=== PATIENT | female | born 1940 | race Caucasian/White ===

== ENCOUNTER 2022-10-12 16:59 | Emergency (ER) | payer OTHER ==
--- OUTSIDE RECORDS SUMMARY | 2022-10-12 17:04 | XMS REPORT | Continuity of Care Document ---
:1940 Author Organization [facility] t Address [address] [place] [address] Care Team Providers Name Role Phone JOSE DEE Primary Care Physician Unavailable LIZZIE ARGUELLO Attending Clinician Unavailable Lizzie Arguello MD Attending Clinician Pob, [facility] Main Attending Clinician Unavailable Renzo Garza MD Attending Clinician Moisés Samuels Attending Clinician Unavailable JOSE PRETTY Attending Clinician Unavailable Jose Pretty MD Attending Clinician Only, Adc Test Attending Clinician Unavailable Doctor Unassigned, [place] Attending Clinician Unavailable Moisés Samuels Admitting Clinician Unavailable JOSE PRETTY Admitting Clinician Unavailable Jose Pretty MD Admitting Clinician Physician, No Primary or Family Admitting Clinician Unavaila ble Payers Payer Name Policy Type Policy Number Effective Date Expiration Date S michael MEDICARE PART A \\T\\ [id number] 2008 B 00:00:00 [facility] [id number] 2014 00:00:00 Problems This patient has no known problems. Allergies, Adverse Reactions, Alerts Allergy Allergy Status Severity Reaction(s) Onset Inactive Treating Comm ents Source Name Type Date Date Clinician Charmaine Dubon Active Rash 2020-11 Pt has Univer s ycin ty to 12-24 allergy ity of adverse 00:00: to all [place] reaction 00 mycin Medical s to drugs Branch drug ERYTHROM DRUG Active Low Rash 2020-11 Univers YCIN 12-24 ity of 00:00: [place] 00 [facility] Branch erythrom DA Active SV 2017- [facility] ycin 2-11 Clear base 00:00: Red 00 [facility] avocado DA Active SV 2017- [facility] 2-11 Clear 00:00: Red 00 [facility] avocado FA Active SV 2017- [facility] 2-11 Clear 00:00: Red 00 [facility] erythrom DA Active SV swelling,eben 2017-11 HC A ycin h ALL DRUGS -11 Clear base ENDING IN 00:00: Red MYCIN 00 [facility] neomycin DA Active SV RASH ALL 2017-11 [facility] MYCINS 2-11 Clear 00:00: Red 00 [facility] avocado FA Active SV BODY 2017- [facility] SWELLING 2-11 Clear 00:00: Red 00 [facility] neomycin DA Active SV 2017- [facility] 2-11 Clear 00:00: Red 00 [facility] erythrom DA Active SV 2017-0 [facility] ycin 4-04 Clear base 00:00: Red 00 [facility] neomycin DA Active SV 2017-0 [facility] 4-04 Clear 00:00: Red 00 [facility] avocado DA Active SV 2017-0 [facility] 4-04 Clear 00:00: Red 00 [facility] NO KNOWN Drug Active Univers ALLERGIE Class ity of S [facility] Social History Social Habit Start Date Stop Date Quantity Comments Source Exposure to Not sure [facility]-CoV-2 [facility] (event) Branch Tobacco use and 2021-10-28 2021-10-28 Smokeless tobacco Un iversity of exposure 00:00:00 00:00:00 non-user [facility] Sex Ass[birth year] At [birth year] [facility] 00:00:00 00:00:00 Smoking Status Start Date Stop Date Source Tobacco smoking consumption [facility] unknown Never smoked tobacco [facility] [place] Medications Ordered Filled Start Stop Current Ordering Indication Dosage Frequency Signature Comments Components Source Medication Medication Date Date Medication? Clinician (SIG) Name Name iopamidol 2021- No [id number] 130mL 130 mL, Univers (ISOVUE 07-03 Intravenou ity o f 370-500 mL) 20:00: 19:08 s, ONCE, 1 [place] injection 00 :00 dose, On Medica l 130 mL 07/03/22 Branch at 1500, Routine balanced Yes PRN, Univers salt soln 11-19 Starting ity of no.2 irrig. 15:02: [place] ([place] at [facility] ophthalmic [facility], [place] solution Until Discontinu ed, Routine, Intra-op balanced 2021- No PRN, Univers salt soln 11-19 Starting ity o f no.2 irrig. 15:02: 18:04 on Wed [place] (BSS) 00 :49 11/19/21 at [place] [id number], [place] solution Until Wed11/19/21 at 1204, Routine, Intra-op water for Yes PRN, Univers irrigation 11-19 Starting ity o f irrigation 14:02: on Wed [place] solution 11/19/21 at Medic al 0802, Branch Until Discontinu ed, Routine, Intra-op water for 2021- No PRN, Univers irrigation 11-19 Starting ity of irrigation 14:02: 18:04 on Wed [place] solution 00 :49 11/19/21 at Medic al 0802, Branch Until Wed11/19/21 at 1204, Routine, Intra-op sodium Yes PRN, Univers chloride 11-19 Starting ity of (NS) 13:59: on Wed [place] injection 11/19/21 at [facility] digna 0759, Branch Until Discontinu ed, Routine, Intra-op neomycin-po Yes PRN, Univer s lymyxin-dex 11-19 Starting ity of amethasone 13:59: on Wed [place] (MAXITROL) 11/19/21 at Med ical 3.5 0759, [place] mg/g-10,000 Until unit/g-0.1 Discontinu % ed, ophthalmic Routine, ointment Intra-op sodium 0 2021- No PRN, Univers chloride 11-19 Starting ity of (NS) 13:59: 18:04 on Wed [place] injection 00 :49 11/19/21 at [facility] digna 0759, Branch Until Wed11/19/21 at 1204, Routine, Intra-op neomycin-po 2021- No PRN, Unive rs lymyxin-dex 11-19 Starting ity of amethasone 13:59: 18:04 [place] ([place]ROL[place] 00 :49 11/19/21 at [facility] ical 3.5 0759, Branch mg/g-10,000 Until Wed unit/g-0.1 11/19/21 at % 1204, ophthalmic Routine, ointment Intra-op Hyaluronida Yes PRN, Univer s se, Human 11-19 Starting ity of Recomb. 13:58: on Wed [place] (HYLENEX) 00 11/19/21 at [facility] injection 0758, Branch Until Discontinu ed, Routine, Intra-op Hyaluronida 2021- No PRN, Unive rs se, Human 11-19 Starting ity o f Recomb. 13:58: 18:04 on Wed [place] (HYLENEX) 00 :49 11/19/21 at [facility] injection 0758, Branch Until Wed11/19/21 at 1204, Routine, Intra-op eye block Yes PRN, Univers syringe 11-19 Starting ity o f mL 13:57: on Wed 00 11/19/21 at [facility] 0757, Branch Until Discontinu ed, Intra-op EPINEPHrine Yes PRN, Univer s 1:1,000 (11-19 Starting ity o f mg/mL) 13:57: on Wed (ADRENALIN) 00 11/19/21 at Al dical injection 0757, Branch Until Discontinu ed, Routine, Intra-op DUOVISC Yes PRN, Univers (DUOVISC 11-19 Starting ity of VISCO 13:57: on Wed [place] ELASTIC) 3 00 11/19/21 at [facility] ical %-4 %(0.5 0757, Branch mL) 1 % Until (0.55 mL) Discontinu intraocular ed, injection Routine, Intra-op eye block 2021- No PRN, Univers syringe 11 11-19 Starting ity of mL 13:57: 18:04 on Wed [place] 00 :49 11/19/21 at Medical 0757, Branch Until Wed11/19/21 at 1204, Intra-op EPINEPHrine 2021- No PRN, Unive rs 1:1,000 (1 11-19 Starting ity of mg/mL) 13:57: 18:04 on Wed [place] (ADRENALIN) 00 :49 11/19/21 at Al dical injection 0757, Branch Until Wed11/19/21 at 1204, Routine, Intra-op DUOVISC 2021- No PRN, Univers (DUOVISC 11-19 Starting ity of VISCO 13:57: 18:04 on Wed [place] ELASTIC) 3 00 :49 11/19/21 at [facility] ical %-4 %(0.5 0757, Branch mL) 1 % Until Wed (0.55 mL) 11/19/21 at intraocular 1204, injection Routine, Intra-op dexamethaso Yes PRN, Univer s ne 11-19 Starting ity of (DECADRON 13:56: on Wed [place] PHOSPHATE) 00 11/19/21 at Med ical injection 0756, Branch Until Discontinu ed, Routine, Intra-op ceFAZolin Yes PRN, Univers (ANCEF) 11-19 Starting ity of injection 13:56: on Wed [place] 00 11/19/21 at Medical 0756, Branch Until Discontinu ed, NIC, Intra-op carbachoL Yes PRN, Univers (MIOSTAT) 11-19 Starting ity of 0.01 % 13:56: on Wed [place] intraocular 00 11/19/21 at Al dical injection 0756, Branch Until Discontinu ed, Routine, Intra-op dexamethaso 2021- No PRN, Unive rs ne 11-19 Starting ity of (DECADRON 13:56: 18:04 on Wed [place] PHOSPHATE) 00 :49 11/19/21 at Med ical injection 0756, Branch Until Wed11/19/21 at 1204, Routine, Intra-op ceFAZolin 2021- No PRN, Univers (ANCEF) 11-19 Starting ity of injection 13:56: 18:04 on Wed [place] 00 :49 11/19/21 at Medical 0756, Branch Until Wed11/19/21 at 1204, NIC, Intra-op carbachoL 2021- No PRN, Univers (MIOSTAT) 11-19 Starting ity o f 0.01 % 13:56: 18:04 on Wed [place] intraocular 00 :49 11/19/21 at Al dical injection 0756, Branch Until Wed11/19/21 at 1204, Routine, Intra-op balanced Yes PRN, Univers salt irrig 11-19 Starting ity o f soln comb1 13:55: on Wed [place] (BSS PLUS) 00 11/19/21 at [facility] ica ophthalmic 0755, Branch solution Until 500 mL bag Discontinu ed, Routine, Intra-op balanced 2021- No PRN, Univers salt irrig 11-19 Starting ity of soln comb1 13:55: 18:04 on Wed [place] (BSS PLUS) 00 :49 11/19/21 at [facility] ica ophthalmic 0755, Branch solution Until Wed 500 mL bag 11/19/21 at 1204, Routine, Intra-op cyclopent 2021- No .5mL 0.5 mL, Univ ers 1%-tropic 11-19 Left Eye, ity of 1%-phenyl 13:30: 13:44 ONCE, 1 [place] 2.5%-ketor 00 :00 dose, On Medic al 0.5% Wed Branch (MYDRIATIC 11/19/21 at #5) 0730, ophthalmic Routine, solution DSU Pre-op syringe 0.5 mL lactated 2021- No 1000mL at 42 Unive rs ringers IV 11-19 mL/hr, ity of infusion 13:30: 13:43 1,000 mL, [place] 1,000 mL 00 :00 IV Medical Infusion, Branch ONCE, 1 dose, On 11/19/21 at 0730, Routine, DSU Pre-op cyclopent 2021- No .5mL 0.5 mL, Univ ers 1%-tropic 11-19 Left Eye, ity of 1%-phenyl 13:30: 13:44 ONCE, 1 [place] 2.5%-ketor 00 :00 dose, On Medic al 0.5% Wed Branch (MYDRIATIC 11/19/21 at #5) 0730, ophthalmic Routine, solution DSU Pre-op syringe 0.5 mL lactated 2021- No 1000mL at 42 Unive rs ringers IV 11-1919 mL/hr, ity of infusion 13:30: 13:43 1,000 mL, [place] 1,000 mL 00 :00 IV Medical Infusion, Branch ONCE, 1 dose, On Wed11/19/21 at 0730, Routine, DSU Pre-op clonazePAM 2-0 Yes 1mg Take 1 mg Un jennifer 1 mg tablet 1-19 by mouth 3 it y of 10:04: (three) [place] [id number] times Medical daily. Branch cloNIDine 2021-0 Yes .2mg Take 0.2 Univ ers 0.2 mg 1-19 mg by ity of tablet 10:04: mouth 3 [place] [address] (three) Medical times Branch daily. clonazePAM 2-0 Yes 1mg Take 1 mg Un jennifer 1 mg tablet 1-19 by mouth 3 it y of 10:04: (three) [place] 47 times Medical daily. Branch cloNIDine 2021-0 Yes .2mg Take 0.2 Univ ers 0.2 mg 1-19 mg by ity of tablet 10:04: mouth 3 [place] [address] (three) Medical times Branch daily. clonazePAM 2-0 Yes 1mg Take 1 mg Un jennifer 1 mg tablet 1-19 by mouth 3 it y of 10:04: (three) [place] 47 times Medical daily. Branch cloNIDine 2-0 Yes .2mg Take 0.2 Univ ers 0.2 mg 1-19 mg by ity of tablet 10:04: mouth 3 [place] [address] (three) Medical times Branch daily. clonazePAM 2022-0 Yes 1mg Take 1 mg Un jennifer 1 mg tablet 1-19 by mouth 3 it y of 10:04: (three) [place] 47 times Medical daily. Branch cloNIDine 2-0 Yes .2mg Take 0.2 Univ ers 0.2 mg 1-19 mg by ity of tablet 10:04: mouth 3 [place] 47 (three) Medical times Branch daily. balanced 2020-11 Yes PRN, Univers salt soln Starting ity of no.2 irrig. 15:47: on Wed [place] (BSS[place] 00 10/29/21 Medical ophthalmic at 0947, Branc h solution Until Discontinu ed, Routine, Intra-op balanced 2020-11- No PRN, Univers salt soln 10-29 Starting ity o f no.2 irrig. 15:47: 19:16 on Wed [place] (BSS) 00 :21 10/29/21 Medical ophthalmic at 0947, Branc h solution Until Wed10/29/21 at 1316, Routine, Intra-op water for 2020-11 Yes PRN, Univers irrigation Starting ity o f irrigation 15:46: on Wed [place] solution 00 10/29/21 Medical at 0946, Branch Until Discontinu ed, Routine, Intra-op sodium 2020-11 Yes PRN, Univers chloride Starting ity of (NS) 15:46: on Wed [place] injection 00 10/29/21 Medica l at 0946, Branch Until Discontinu ed, Routine, Intra-op water for 2020-11- No PRN, Univers irrigation 10-29 Starting ity of irrigation 15:46: 19:16 on Wed [place] solution 00 :21 10/29/21 Medical at 0946, Branch Until Wed10/29/21 at 1316, Routine, Intra-op sodium 2020-11- No PRN, Univers chloride 10-29 Starting ity of (NS) 15:46: 19:16 on Wed [place] injection 00 :21 10/29/21 Medica l at 0946, Branch Until Wed10/29/21 at 1316, Routine, Intra-op neomycin-po 2020-11 Yes PRN, Univer s lymyxin-dex Starting ity of amethasone 15:45: on Wed [place] (MAXITROL) 00 10/29/21 Medic al 3.5 at 0945, Branch mg/g-10,000 Until unit/g-0.1 Discontinu % ed, ophthalmic Routine, ointment Intra-op Hyaluronida 2020-11 Yes PRN, Univer s se, Human Starting ity of Recomb. 15:45: on Wed (HYLENEX) 00 10/29/21 Medica l injection at 0945, Branch Until Discontinu ed, Routine, Intra-op neomycin-po 2020-11- No [facility]29 Starting ity of amethasone 15:45: 19:16 on Wed [place] (MAXITROL) 00 :21 10/29/21 Medic al 3.5 at 0945, Branch mg/g-10,000 Until Wed unit/g-0.1 10/29/21 % at 1316, ophthalmic Routine, ointment Intra-op Hyaluronida 2020-11- No PRN, Unive rs se, Human 10-29 Starting ity o f Recomb. 15:45: 19:16 on Wed (HYLENEX) 00 :21 10/29/21 Medica l injection at 0945, Branch Until Wed10/29/21 at 1316, Routine, Intra-op eye block 2020-11 Yes PRN, Univers syringe 11 Starting ity o f mL 15:44: on Wed 00 10/29/21 Medical at 0944, Branch Until Discontinu ed, Intra-op eye block 2020-11- No PRN, Univers syringe 11 10-29 Starting ity of mL 15:44: 19:16 on Wed [place] 00 :21 10/29/21 Medical at 0944, Branch Until Wed10/29/21 at 1316, Intra-op EPINEPHrine 2020-11 Yes PRN, Univer s 1:1,000 (1 Starting ity o f mg/mL) 15:09: on Wed (ADRENALIN) 00 10/29/21 Medi digna injection at 0909, Branch Until Discontinu ed, Routine, Intra-op DUOVISC 2020-11 Yes PRN, Univers (DUOVISC Starting ity of VISCO 15:09: on Wed [place] ELASTIC) 3 00 10/29/21 Medic al %-4 %(0.5 at 0909, Branch mL) 1 % Until (0.55 mL) Discontinu intraocular ed, injection Routine, Intra-op EPINEPHrine 2020-11- No PRN, Unive rs 1:1,000 (1 10-29 Starting ity of mg/mL) 15:09: 19:16 on Wed [place] (ADRENALIN) 00 :21 10/29/21 Medi digna injection at 0909, Branch Until Wed10/29/21 at 1316, Routine, Intra-op DUOVISC 2020-11- No PRN, Univers (DUOVISC 10-29 Starting ity of VISCO 15:09: 19:16 on Wed [place] ELASTIC) 3 00 :21 10/29/21 Medic al %-4 %(0.5 at 0909, Branch mL) 1 % Until Wed (0.55 mL) 10/29/21 intraocular at 1316, injection Routine, Intra-op dexamethaso 2020-11 Yes PRN, Univer s ne Starting ity of (DECADRON 15:08: on Wed PHOSPHATE) 00 10/29/21 Medic al injection at 0908, Branch Until Discontinu ed, Routine, Intra-op ceFAZolin 2020-11 Yes PRN, Univers (ANCEF) Starting ity of injection 15:08: on Wed [place] 00 10/29/21 Medical at 0908, Branch Until Discontinu ed, NIC, Intra-op carbachoL 2020-11 Yes PRN, Univers (MIOSTAT) Starting ity of 0.01 % 15:08: on Wed [place] intraocular 00 10/29/21 Medi digna injection at 0908, Branch Until Discontinu ed, Routine, Intra-op balanced 2020-11 Yes PRN, Univers salt irrig Starting ity o f soln comb1 15:08: on Wed (BSS PLUS) 00 10/29/21 Medic al ophthalmic at 0908, Branc h solution Until 500 mL bag Discontinu ed, Routine, Intra-op dexamethaso 2020-11- No PRN, Unive rs ne 10-29 Starting ity of (DECADRON 15:08: 19:16 on Wed PHOSPHATE) 00 :21 10/29/21 Medic al injection at 0908, Branch Until Wed10/29/21 at 1316, Routine, Intra-op ceFAZolin 2020-11- No PRN, Univers (ANCEF) 10-29 Starting ity of injection 15:08: 19:16 on Wed [place] 00 :21 10/29/21 Medical at 0908, Branch Until Wed10/29/21 at 1316, NIC, Intra-op carbachoL 2020-11- No PRN, Univers (MIOSTAT) 10-29 Starting ity o f 0.01 % 15:08: 19:16 on Wed [place] intraocular 00 :21 10/29/21 Medi digna injection at 0908, Branch Until Wed10/29/21 at 1316, Routine, Intra-op balanced 2020-11- No PRN, Univers salt irrig 10-29 Starting ity of soln comb1 15:08: 19:16 on Wed [place] (BSS PLUS) 00 :10/29/21 Medic al ophthalmic at 0908, Branc h solution Until Wed 500 mL bag 10/29/21 at 1316, Routine, Intra-op cyclopent 2020-11- No .5mL 0.5 mL, Univ ers 1%-tropic 10-29 Right Eye, ity of 1%-phenyl 14:45: 15:02 ONCE, 1 [place] 2.5%-ketor 00 :00 dose, On Medic al 0.5% Wed Branch (MYDRIATIC 10/29/21 #5) at 0845, ophthalmic Routine, solution DSU Pre-op syringe 0.5 mL lactated 2020-11- No 1000mL at 42 Unive rs ringers IV 10-29 mL/hr, ity of infusion 14:45: 15:02 1,000 mL, [place] 1,000 mL 00 :00 IV Medical Infusion, Branch ONCE, 1 dose, On Wed10/29/21 at 0845, Routine, DSU Pre-op cyclopent 2020-11- No .5mL 0.5 mL, Univ ers 1%-tropic 10-29 Right Eye, ity of 1%-phenyl 14:45: 15:02 ONCE, 1 [place] 2.5%-ketor 00 :00 dose, On Medic al 0.5% Wed Branch (MYDRIATIC 10/29/21 #5) at 0845, ophthalmic Routine, solution DSU Pre-op syringe 0.5 mL lactated 2020-11- 1000mL at 42 Unive rs ringers IV 2-29 12-29 mL/hr, ity of infusion 14:45: 15:02 1,000 mL, [place] 1,000 mL 00 :00 IV Medical Infusion, Branch ONCE, 1 dose, On Wed10/29/21 at 0845, Routine, DSU Pre-op clonazePAM 2020-11 Yes 1mg Take 1 mg Un jennifer 1 mg tablet 2-29 by mouth 3 it y of 11:16: (three) [place] 20 times Medical daily. Branch cloNIDine 2020-11 Yes .2mg Take 0.2 Univ ers 0.2 mg 2-29 mg by ity of tablet 11:16: mouth 3 [place] 20 (three) Medical times Branch daily. clonazePAM 2020-11 Yes 1mg Take 1 mg Un jennifer 1 mg tablet 2-29 by mouth 3 it y of 11:16: (three) [place] 20 times Medical daily. Branch cloNIDine 2020-11 Yes .2mg Take 0.2 Univ ers 0.2 mg 2-29 mg by ity of tablet 11:16: mouth 3 [place] 20 (three) Medical times Branch daily. clonazePAM 2020-11 Yes 1mg Take 1 mg Un jennifer 1 mg tablet 2-29 by mouth 3 it y of 11:16: (three) [place] 20 times Medical daily. Branch cloNIDine 2020-11 Yes .2mg Take 0.2 Univ ers 0.2 mg 2-29 mg by ity of tablet 11:16: mouth 3 [place] 20 (three) Medical times Branch daily. clonazePAM 2020-11 Yes 1mg Take 1 mg Un jennifer 1 mg tablet 2-29 by mouth 3 it y of 11:16: (three) [place] 20 times Medical daily. Branch cloNIDine 2020-11 Yes .2mg Take 0.2 Univ ers 0.2 mg 2-29 mg by ity of tablet 11:16: mouth 3 [place] 20 (three) Medical times Branch daily. latanoprost 2020-11 Yes Univer s 0.005 % 2-19 ity of ophthalmic 00:00: [place] drops 00 Medical Branch latanoprost 2020-11 Yes Univer s 0.005 % 2-19 ity of ophthalmic 00:00: [place] drops 00 Medical Branch latanoprost 2020-11 Yes Univer s 0.005 % 2-19 ity of ophthalmic 00:00: [place] drops Medical Branch latanoprost 2020-11 Yes Univer s 0.005 % 2-19 ity of ophthalmic 00:00: [place] drops Medical Branch latanoprost 2020-11 Yes Univer s 0.005 % 2-19 ity of ophthalmic 00:00: [place] drops Medical Branch latanoprost 2020-11 Yes Univer s 0.005 % 2-19 ity of ophthalmic 00:00: [place] drops Medical Branch latanoprost 2020-11 Yes Univer s 0.005 % 2-19 ity of ophthalmic 00:00: [place] drops Medical Branch latanoprost 2020-11 Yes Univer s 0.005 % 2-19 ity of ophthalmic 00:00: [place] drops Medical Branch amLODIPine 2020-11 Yes Univers 5 mg tablet 2-09 ity of 00:00: Medical Branch amLODIPine 2020-11 Yes Univers 5 mg tablet 2-09 ity of 00:00: Medical Branch amLODIPine 2020-11 Yes Univers 5 mg tablet 2-09 ity of 00:00: Medical Branch amLODIPine 2020-11 Yes Univers 5 mg tablet 2-09 ity of 00:00: Medical Branch amLODIPine 2020-11 Yes Univers 5 mg tablet 2-09 ity of 00:00: Medical Branch amLODIPine 2020-11 Yes Univers 5 mg tablet 2-09 ity of 00:00: Medical Branch amLODIPine 2020-11 Yes Univers 5 mg tablet 2-09 ity of 00:00: Medical Branch amLODIPine 2020-11 Yes Univers 5 mg tablet 2-09 ity of 00:00: Medical Branch PROLENSA 2020-11 Yes Univers 0.07 % 2-06 ity of drops 00:00: Medical Branch PROLENSA 2020-11 Yes Univers 0.07 % 2-06 ity of drops 00:00: Medical Branch PROLENSA 2020-11 Yes Univers 0.07 % 2-06 ity of drops 00:00: Medical Branch PROLENSA 2020-11 Yes Univers 0.07 % 2-06 ity of drops 00:00: Medical Branch PROLENSA 2020-11 Yes Univers 0.07 % 2-06 ity of drops 00:00: [place] [facility] PROLENSA 2020-11 Yes Univers 0.07 % 2-06 ity of drops 00:00: [place] [facility] PROLENSA 2020-11 Yes Univers 0.07 % 2-06 ity of drops 00:00: [place] [facility] PROLENSA 2020-11 Yes Univers 0.07 % 2-06 ity of drops 00:00: [place] [facility] hydroCHLORO 2020-11 Yes Univer s thiazide 25 1-30 ity of mg tablet 00:00: [place] [facility] hydroCHLORO 2020-11 Yes Univer s thiazide 25 1-30 ity of mg tablet 00:00: [place] [facility] hydroCHLORO 2020-11 Yes Univer s thiazide 25 1-30 ity of mg tablet 00:00: [place] [facility] hydroCHLORO 2020-11 Yes Univer s thiazide 25 1-30 ity of mg tablet 00:00: [place] [facility] hydroCHLORO 2020-11 Yes Univer s thiazide 25 1-30 ity of mg tablet 00:00: [place] [facility] hydroCHLORO 2020-11 Yes Univer s thiazide 25 1-30 ity of mg tablet 00:00: [place] [facility] hydroCHLORO 2020-11 Yes Univer s thiazide 25 1-30 ity of mg tablet 00:00: [place] [facility] hydroCHLORO 2020-11 Yes Univer s thiazide 25 1-30 ity of mg tablet 00:00: [place] [facility] Branch 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 2020-11 Yes TAKE 1 Unive rs 90 mg 1-15 TABLET BY ity of tablet 00:00: MOUTH [place] EVERY DAY Medical ON AN Branch EMPTY STOMACH 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 2020-11 Yes TAKE 1 Unive rs 90 mg 1-15 TABLET BY ity of tablet 00:00: MOUTH [place] EVERY DAY Medical ON AN Branch EMPTY STOMACH 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 2020-11 Yes TAKE 1 Unive rs 90 mg 1-15 TABLET BY ity of tablet 00:00: MOUTH [place] EVERY DAY Medical ON AN Branch EMPTY STOMACH 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 2020-11 Yes TAKE 1 Unive rs 90 mg 1-15 TABLET BY ity of tablet 00:00: MOUTH [place] EVERY DAY Medical ON AN Branch EMPTY STOMACH 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 2021-1 Yes TAKE 1 Unive rs 90 mg 1-15 TABLET BY ity of tablet 00:00: MOUTH [place] 00 EVERY DAY Medical ON AN Branch EMPTY STOMACH 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 2020-11 Yes TAKE 1 Unive rs 90 mg 1-15 TABLET BY ity of tablet 00:00: MOUTH [place] EVERY DAY Medical ON AN Branch EMPTY STOMACH 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 2020-11 Yes TAKE 1 Unive rs 90 mg 1-15 TABLET BY ity of tablet 00:00: MOUTH [place] EVERY DAY Medical ON AN Branch EMPTY STOMACH 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 2020-11 Yes TAKE 1 Unive rs 90 mg 1-15 TABLET BY ity of tablet 00:00: MOUTH [place] 00 EVERY DAY Medical ON AN Branch EMPTY STOMACH traMADoL 50 2020-11 Yes Univer s mg tablet 0-29 ity of 00:00: [place] [facility] Branch traMADoL 50 2020-11 Yes Univer s mg tablet 0-29 ity of 00:00: [place] [facility] traMADoL 50 2020-11 Yes Univer s mg tablet 0-29 ity of 00:00: [place] [facility] traMADoL 50 2020-11 Yes Univer s mg tablet 0-29 ity of 00:00: [place] [facility] traMADoL 50 2020-11 Yes Univer s mg tablet 0-29 ity of 00:00: [place] [facility] traMADoL 50 2020-11 Yes Univer s mg tablet 0-29 ity of 00:00: [place] [facility] traMADoL 50 2020-11 Yes Univer s mg tablet 0-29 ity of 00:00: [place] [facility] traMADoL 50 2020-11 Yes Univer s mg tablet 0-29 ity of 00:00: [place] [facility] traZODone 2020-11 Yes Univers 100 mg 0-07 ity of tablet 00:00: [place] [facility] traZODone 2020-11 Yes Univers 100 mg 0-07 ity of tablet 00:00: [place] [facility] traZODone 2020-11 Yes Univers 100 mg 0-07 ity of tablet 00:00: [place] [facility] traZODone 2020-11 Yes Univers 100 mg 0-07 ity of tablet 00:00: [place] [facility] traZODone 2020-11 Yes Univers 100 mg 0-07 ity of tablet 00:00: [place] [facility] traZODone 2020-11 Yes Univers 100 mg 0-07 ity of tablet 00:00: [place] [facility] traZODone 2020-11 Yes Univers 100 mg 0-07 ity of tablet 00:00: [facility] traZODone 2020-11 Yes Univers 100 mg 0-07 ity of tablet 00:00: [facility] lisinopriL 2020-11 Yes Univers 40 mg 0-06 ity of tablet 00:00: [place] [facility] lovastatin 2020-11 Yes Univers 20 mg 0-06 ity of tablet 00:00: [place] [facility] metformin 2020-11 Yes Univers ER 500 mg 0-06 ity of 24 hr 00:00: [place] tablet [facility] lisinopriL 2020-11 Yes Univers 40 mg 0-06 ity of tablet 00:00: [place] [facility] lovastatin 2020-11 Yes Univers 20 mg 0-06 ity of tablet 00:00: [place] [facility] metformin 2020-11 Yes Univers ER 500 mg 0-06 ity of 24 hr 00:00: [place] tablet [facility] lisinopriL 2020-11 Yes Univers 40 mg 0-06 ity of tablet 00:00: [place] [facility] lovastatin 2020-11 Yes Univers 20 mg 0-06 ity of tablet 00:00: [place] [facility] [facility] metformin 2020- Yes Univers ER 500 mg 0-06 ity of 24 hr 00:00: [place] [facility] lisinopriL 2020-11 Yes Univers 40 mg 0-06 ity of tablet 00:00: [place] [facility] lovastatin 2020-11 Yes Univers 20 mg 0-06 ity of tablet 00:00: [place] [facility] metformin 2020- Yes Univers ER 500 mg 0-06 ity of 24 hr 00:00: [place] tablet [facility] [place] lisinopriL 2020-11 Yes Univers 40 mg 0-06 ity of tablet 00:00: [place] [facility] lovastatin 2020-11 Yes Univers 20 mg 0-06 ity of tablet 00:00: [place] [facility] metformin 2020-11 Yes Univers ER 500 mg 0-06 ity of 24 hr 00:00: [place] tablet [facility] lisinopriL 2020-11 Yes Univers 40 mg 0-06 ity of tablet 00:00: [place] [facility] lovastatin 2020-11 Yes Univers 20 mg 0-06 ity of tablet 00:00: [place] [facility] metformin 2020-1 Yes Univers ER 500 mg 0-06 ity of 24 hr 00:00: [place] tablet [facility] lisinopriL 2020-1 Yes Univers 40 mg 0-06 ity of tablet 00:00: [place] [facility] lovastatin 2020-1 Yes Univers 20 mg 0-06 ity of tablet 00:00: [place] [facility] metformin 2020-1 Yes Univers ER 500 mg 0-06 ity of 24 hr 00:00: [place] tablet [facility] lisinopriL 2020-1 Yes Univers 40 mg 0-06 ity of tablet 00:00: [place] [facility] lovastatin 2020- Yes Univers 20 mg 0-06 ity of tablet 00:00: [place] [facility] metformin 2020-1 Yes Univers ER 500 mg 0-06 ity of 24 hr 00:00: [place] tablet [facility] tamoxifen 2021-0 Yes Univers 20 mg 9-30 ity of tablet 00:00: [place] [facility] tamoxifen 2021-0 Yes Univers 20 mg 9-30 ity of tablet 00:00: [place] [facility] tamoxifen 2021-0 Yes Univers 20 mg 9-30 ity of tablet 00:00: [place] [facility] tamoxifen 2021-0 Yes Univers 20 mg 9-30 ity of tablet 00:00: [place] [facility] tamoxifen 2021-0 Yes Univers 20 mg 9-30 ity of tablet 00:00: [address] tamoxifen 2021-0 Yes Univers 20 mg 9-30 ity of tablet 00:00: [place] [facility] tamoxifen 2021-0 Yes Univers 20 mg 9-30 ity of tablet 00:00: [address] tamoxifen 2021-0 Yes Univers 20 mg 9-30 ity of tablet 00:00: [address] Vital Signs Vital Name Observation Time Observation Value Comments Source Systolic blood 2021-11-19 15:50:00 187 mm[Hg] Univer sity of pressure [facility] Diastolic blood 2021-11-19 15:50:00 65 mm[Hg] Unive rsity of pressure [facility] Heart rate 2021-11-19 15:50:00 58 /min Universi ty of [facility] Respiratory rate 2021-11-19 15:50:00 16 /min Univ [facility] [place] [facility] Oxygen saturation in 2021-11-19 15:50:00 98 /min University of Arterial blood by [facility] Pulse oximetry Branch Body temperature 2021-11-19 15:30:00 36.39 Hanane [facility] [place] [facility] Body weight 2021-11-10 19:11:00 74 kg [facility] [place] [facility] BMI 2021-11-10 19:11:00 27.99 kg/m2 [facility] [place] [facility] Systolic blood 2021-11-19 13:24:00 157 mm[Hg] Univer sity of pressure [facility] Diastolic blood 2021-11-19 13:24:00 68 mm[Hg] Unive rsity of pressure [facility] Heart rate 2021-11-19 13:24:00 58 /min [facility] [place] [facility] Body temperature 2021-11-19 13:24:00 36.11 Hanane [facility] [place] [facility] Respiratory rate 2021-11-19 13:24:00 19 /min Univ [facility] [place] [facility] Oxygen saturation in 2021-11-19 13:24:00 97 /min University of Arterial blood by [facility] Pulse oximetry Branch Body weight 2021-11-10 19:11:00 74 kg [facility] [place] [facility] BMI 2021-11-10 19:11:00 27.99 kg/m2 [facility] [place] [facility] Systolic blood 2021-10-29 16:54:00 164 mm[Hg] Univer sity of pressure [place] [facility] Diastolic blood 2021-10-29 16:54:00 56 mm[Hg] Unive rsity of pressure [place] [facility] Heart rate 2021-10-29 16:54:00 57 /min [facility] [place] [facility] Respiratory rate 2021-10-29 16:54:00 14 /min Univ [facility] [place] [facility] Oxygen saturation in 2021-10-29 16:54:00 98 /min University of Arterial blood by [facility] Pulse oximetry Branch Body temperature 2021-10-29 16:36:00 36.28 Hanane [facility] [place] [facility] Body height 2021-10-23 20:50:00 162.6 cm [facility] [place] [facility] Body weight 2021-10-23 20:50:00 74 kg [facility] [place] [facility] BMI 2021-10-23 20:50:00 27.99 kg/m2 [facility] Systolic blood 2021-10-29 14:54:00 166 mm[Hg] Univer sity [facility] Diastolic blood 2021-10-29 14:54:00 77 mm[Hg] [facility] Heart rate 2021-10-29 14:54:00 67 /min [facility] Body temperature 2021-10-29 14:54:00 36.22 Hanane [facility] Res[facility] rate 2021-10-29 14:54:00 17 /min [facility] Oxygen saturation in 2021-10-29 14:54:00 98 /min [facility] Arterial blood by [facility] Pulse oximetry Branch Body height 2021-10-23 20:50:00 162.6 cm [facility] Body weight 2021-10-23 20:50:00 74 kg [facility] BMI 2021-10-23 20:50:00 27.99 kg/m2 [facility] Procedures Procedure Date / Time Performing Source Performed Clinician CT ABDOMEN PELVIS W WO 2022-07-03 Lizzie Arguello [facility] CONTRAST 19:06:50 [facility] PHACOEMULSIFICATION OF 2021-11-19 Jose Pretty [facility] CATARACT WITH INTRAOCULAR 14:45:00 [facility] LENS IMPLANT POCT GLUCOSE(AGE >30DAYS) 2021-11-19 Ramona Warner [facility] 13:43:00 [facility] POCT GLUCOSE(AGE >30DAYS) 2021-11-19 Ramona Warner [facility] 13:43:00 [facility] POCT GLUCOSE (AUTOMATED) 2021-11-19 Jose Pretty [facility] 13:41:00 [facility] POCT GLUCOSE (AUTOMATED) 2021-11-19 Jose Pretty [facility] 13:41:00 [facility] ASSIGNMENT OF BENEFITS 2021-11-18 Doctor Unassigned, [facility] 20:42:22 [place] [place] [facility] PHACOEMULSIFICATION OF 2021-10-29 Jose Pretty [facility] CATARACT WITH INTRAOCULAR 16:00:00 Medica l Branch LENS IMPLANT ASSIGNMENT OF BENEFITS 2021-10-27 Unaodalis [facility] 19:01:16 [place] [facility] NO SHOW OR MISSED APPOINTMENT 2021-10-06 Doctor Franky [facility] POLICY ACKNOWLEDGEMENT 23:05:51 [place] [facility] NO SHOW OR MISSED APPOINTMENT 2021-10-06 Doctor Franky [facility] POLICY ACKNOWLEDGEMENT 23:05:51 [place] [facility] PATIENT FINANCIAL POLICY 2021-10-06 Doctor Unasskatiuska [facility] 23:05:25 [place] [facility] PATIENT FINANCIAL POLICY 2021-10-06 Doctor Unasskatiuska [facility] 23:05:25 [place] [place] [facility] NOTICE OF BILLING PRACTICES 2021-10-06 Doctor Unasskatiuska [facility] FOR MEDICARE PATIENTS 23:05:00 [place] [facility] anch NOTICE OF BILLING PRACTICES 2021-10-06 Doctor Franky [facility] FOR MEDICARE PATIENTS 23:05:00 [place] [facility] NOTICE OF PRIVACY PRACTICES 2021-10-06 Doctor Unasskatiuska [facility] 23:04:29 [facility] [place] NOTICE OF PRIVACY PRACTICES 2021-10-06 Doctor Franky [facility] 23:04:29 [place] [place] [facility] CONSENT/REFUSAL FOR DIAGNOSIS 2021-10-06 Doctor Franky [facility] AND TREATMENT 23:04:00 [place] [facility] CONSENT/REFUSAL FOR DIAGNOSIS 2021-10-06 Doctor Franky [facility] AND TREATMENT 23:04:00 [place] [facility] ASSIGNMENT OF BENEFITS 2021-10-06 Doctor Franky [facility] 23:03:32 [place] [place] [facility] ASSIGNMENT OF BENEFITS 2021-10-06 Doctor Pegsskatiuska [facility] 23:03:32 [place] [place] [facility] Plan of Care Planned Activity Planned Date Details Comments Source Future Scheduled 2022-09-03 HEPATITIS B VACCINES [facility] Test 23:39:59 (1 of 3 - 3-dose series) [code = HEPATITIS B VACCINES (1 of 3 - 3-dose series)] Future Scheduled 2022-09-03 COVID-19 [facility]INE (#[facility] 23:39:59 [code = COVID-19 VACCINE (#1)] Future Scheduled 2022-09-03 [facility]INGLES [facility]IN[facility] 23:39:59 of 2) [code = SHINGLES VACCINES (1 of 2)] Future Scheduled 2022-09-03 65+ [facility]CCAL [facility] 23:39:59 VACCINE (1 - PCV) [code = 65+ PNEUMOCOCCAL VACCINE (1 - PCV)] Future Scheduled 2022-09-03 INFLUENZA VACCINE [facility] Test 23:39:59 [code = INFLUENZA VACCINE] Encounters Start End Encounter Admission Attending Care Care Encounter Source Date/Time Date/Time Type Type Clinicians Facility Department ID 2022-07-03 2022-07-03 Outpatient Sergei ARGUELLO [facility] [id number] Univers 12:07:11 23:59:00 LIZZIE rodriguez [facility] 2022-07-03 2022-07-03 [facility] [id number] Univers 12:07:11 23:59:00 [id number] 4[facility]2.7.2.686 [facility] [id number] [address] 2022-07-03 2022-07-03 [place] Attendant [facility] Main [facility] 1.2.8 40.114 [id number] Univers 16:15:00 16:30:00 Visit Renzo Garza [id number] [facility] 4.2.7.2.686 [facility] [id number] Al dical [address] 2022-04-08 2022-04-08 Outpatient JARROD Salter LONA [id number] [facility] 12:00:00 12:00:00 Moisés Junior [facility] 2021-11-19 2021-11-19 Outpatient Sergei PRETTY DEBERNA OPH [id number] Univers 07:21:00 10:02:00 JOSE rodriguez [facility] 2021-11-19 2021-11-19 [facility] [id number] Univers 07:21:00 10:02:00 Encounter Jose DILL [id number] ity of [facility] [place]7.2.[place] [id number] [facility] 071 Branch 2021-11-19 2021-11-19 Surgery [facility] [id number] Univers 08:12:00 08:53:00 Jose Saturnino ANIYAH [id number] [place] [id number] [facility] 020 Branch 2021-11-18 2021-11-18 Laboratory Only, Adc Test [facility] 1.2.840. 114 [id number] Univers 14:30:00 14:45:00 Only Jose Pretty 350.1.13.1 0 [place]2.[place] [id number] [facility] 353 Branch 2021-11-18 2021-11-18 [facility] [id number] Univers 14:30:00 14:30:00 JOSE ity [facility] 2021-11-18 2021-11-18 Orders Doctor ABA 1.2.840.114 [id number] Univers 00:00:00 00:00:00 Only Unassigned, FAYE 350.1.13.10 ity of [place] [facility] 4.2.7.2.686 Efrain as [id number] [facility] 009 Branch 2021-10-29 2021-10-29 Out[facility] OPH [id number] Univers 08:41:00 11:06:00 JOSE ity of [facility] 2021-10-29 2021-10-29 Hospital [facility] [id number] Univers 08:41:00 11:06:00 Encounter Jose DILL [id number] ity of [facility] 4[place]2.[place].2.[place] [id number] [facility] 071 Branch 2021-10-29 2021-10-29 Surgery [facility] [id number] Univers 09:27:00 10:08:00 Jose DILL [id number] ity [place]2.[place] [id number] [facility] 020 Branch 2021-10-27 2021-10-27 Laboratory Only, Adc Test [facility] 1.2.840. 114 [id number] Univers 13:30:00 13:45:00 Only Jose Pretty 350.1.13.1 0 [place] [id number] [facility] 353 Branch 2021-10-27 2021-10-27 Outpatient Sergei PRETTY [facility] [id number] Univers 13:30:00 13:30:00 JOSE rodriguez [facility] 2021-10-27 2021-10-27 Orders Doctor ABA 1.2.840.114 [id number] Univers 00:00:00 00:00:00 Only Unassigned, FAYE 350.1.13.10 ity of [place] [facility] 4.2.7.2.686 Efrain as [id number] [facility] 009 Branch 2021-10-06 2021-10-06 Outpatient Sergei SUKHWINDER [facility] [id number] Univers 16:45:00 16:45:00 JOSE rodriguez [facility] 2021-04-03 2021-04-03 Outpatient CATHY SmithJARROD wallace [id number] [facility] 12:00:00 12:00:00 Khalid 03 [facility] 2020-04-01 2020-04-01 Outpatient CATHY SamuelsJARROD [id number] [facility] 12:00:00 12:00:00 Khalid 67 [facility] Results Test Description Test Time Test Comments Results Result Comments Source POCT GLUCOSE (AUTOMATED) 2021-11-19 13:44:14 Test Item Value Reference Range Interpretation Comme nts POCT GLU (test code = 8883227778) 138 mg/dL 70-110 H Lab Interpretation (test code = 90890-1) [facility]19 13:44:14 Test Item Value Reference Range Interpretation Comments POCT GLU (test code = 4663457675) 138 mg/dL 70-110 H Lab Interpretation (test code = Abnormal 20965-7) [facility] [id number] 13:43:00 Test Item Value Reference Range Interpretation Comments POCT Glu (age>30days) (test code = 138 mg/dL 70-110 A 3342) Lab Interpretation (test code = Abnormal 81617-1) [facility] [id number] 13:43:00 Test Item Value Reference Range Interpretation Comments POCT Glu (age>30days) (test code = 138 mg/dL 70-110 A 3342) Lab Interpretation (test code = Abnormal 37630-4) [facility] [id number] 13:11:00 RUN DATE: 10/25/18 [place] [facility] *LIVE* PAGE 1 RUN TIME: 1311 Specimen Inquiry RUN USER: INTERFACE -------- ----PATIENT: DELIO DANIEL LOC: [place] U #: [id number] AGE/SX: 77/F ROOM: RE10/12/18REG DR:Shade Steinberg MD : [birth year] BED: DIS: STATUS: [facility] TLOC: SPEC #: [id number] RECD: 10/12/18 STATUS: FAYE KAUFMAN #: [id number] CRISTINA: 10/12/[address] [facility] [address]: Shade Steinberg MD ENTERED: 10/19/18 SP TYPE: SURG SPEC OTHR DR: Moisés Samuels MD, Paul H MDORDERED: GM LEVEL 4 CODES: [id number] - LUNG, NOS [id number] - LYMPH NODE, NOS COPIES TO: Moisés Samuels MD [address] [place] [address] [phone] Shade Steinberg MD [address] [place] [address], [address] [place] [address] Jose Dee MD [address] [place] [id number] PROCEDURES: GM LEVEL 4 (Incomplete) TISSUES: 1. LUNG, NOS - Lung, right upper lobe, brushing/smear 2. LUNG, NOS - Lung, right upper lobe lavage, cytology 3. LUNG, NOS - Lung, right upper lobe, bx. 4. LYMPH NODE, NOS - Lnx, station 11R, FNA FINAL DIAGNOSIS Lung, right upper lobe, brushing/smear: No cells diagnostic of malignancy. Lung, right, upper lobe lavage, cytology: No cells diagnostic of malignancy. Lung, right upper lobe, bx.: Lung parenchyma with mild fibrosis of the alveolar septae. 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 CONTINUED ON NEXT PAGE RUN DATE: 10/25/18 [facility] *LIVE* PAGE 2 RUN TIME: 1311 Specimen Inquiry RUN USER: INTERFACE ------ ------SPEC #: [id number] PATIENT: DELIO DANIEL #[id number] (Continued) GROSS AND MICROSCOPIC GROSS DESCRIPTION: Received is a right upper lobe brushing for cytologic evaluation. Also received is a right upper lobe lavage for cytologic evaluation. Also received and labeled right upper lobe of the lung biopsy are 3 segments of tissue that measure up to 0.3 cm in greatest dimensions each. Entirely submitted. Also received and labeled lymph node, station 11R, fine needle aspirate is material for cytologic evaluation. MICROSCOPIC EXAMINATION: The brushings from the right upper lobe of the lung show respiratory epithelial cells and scattered inflammatory cells without definite evidence of malignancy. The AFB and GMS stains are negative for acid-fast and fungal organisms. (When special stains have been reviewed, the appropriate positive/negative controls have been reviewed and are appropriately positive/negative). Theright upper lobe of the lung lavage specimen cell block and cytospin smears reveal respiratory epithelial cells as well as squamous epithelial cells, inflammatory cells and amorphous debris. AFB and GMS stains are negative for acid-fast and fungal organisms. The biopsy of the right upper lobe of the lung shows hemorrhage and fibrosis with fibrosis of alveolar septa. The AFB and GMS stains do not show acid-fast or fungal organisms. Sections of the "Lymph node, station 11R, FNA" reveal changes of abnormal population of small blue cells having a spindle cell configuration. Hemorrhage is also present.The smears show groups of atypical cells having enlarged hyperchromatic nuclei admixed with lymphoidcells. Immunostains of the lymph node from the station 11R show the atypical cell population is positive for CK7, chromogranin, synaptophysin, pankeratin and BerEP4; with weak staining for TTF1; negative for CD34, CK5/6, CK20, MOC31, CD68. The proliferation by Ki67 is low. The controls are appropriate. POST-OP DIAGNOSIS Right upper lobe nodule PRE-OP DIAGNOSIS Pulmonary nodule CONTINUED ON NEXT PAGE RUNDATE: 10/25/18 [place] [facility] *LIVE* PAGE 3 RUN TIME: 1311 Specimen Inquiry RUN USER: INTERFACE --- ---------SPEC #: [id number] PATIENT: DELIO DANIEL #[id number] (Continued) REVIEWED BY: WD Signed SIGNATURE ON FILE JeanmarieCherryjuan Marley MD 10/25/18 1311 END OF REPORT
[2022-10-12] MEDS ORDERED: HYDROCODONE/APAP 5/325 MG TAB ONE ×2 (17:36→19:19)
--- NOTE | 2022-10-12 18:49 | RAD REPORT ---
EXAM DESCRIPTION: RAD - Knee Left 3 View - 10/12/2022 6:27 pm CLINICAL HISTORY: PAIN COMPARISON: Knee Left 3 view dated 03/09/2014 FINDINGS/IMPRESSION: Intramedullary genet in the left femur. No evidence of loosening.No new fracture s are identified.
--- NOTE | 2022-10-12 18:50 | RAD REPORT ---
EXAM DESCRIPTION: RAD - Ankle Right 3 View - 10/12/2022 6:27 pm CLINICAL HISTORY: PAIN COMPARISON: No comparisons FINDINGS/IMPRESSION: Avulsion fracture off of the anterior process of the talus. Soft tissue swelli ng is present laterally. No malalignment. No other fractures identified.
--- NOTE | 2022-10-12 20:14 | RAD REPORT ---
EXAM DESCRIPTION: CT - Knee Left Wo Con - 10/12/2022 7:59 pm CLINICAL HISTORY: fall injury COMPARISON: Knee Left 3 View dated 10/12/2022 FINDINGS: Lipoma hemarthrosis. Intramedullary genet in the femur. This extends to the femoral epiphysi s. Minimally displaced obliquely oriented acute fracture involving medial femoral metaphysis which ex tends to the intramedullary genet. The visualized tibia and fibula are intact. Remote healed deformity also noted. IMPRESSION: Minimally displaced obliquely oriented fracture at the distal femur involving the metaph ysis and epiphysis and with extension to the intramedullary genet. Lipohemarthrosis is present.
--- NOTE | 2022-10-12 20:42 | ER ---
Nurse's Notes [facility] Name: Lizzeth Kumari Age: 82 yrs Sex: Female : 1940 Arrival Date: 10/12/2022 Time: 17:10 Bed 14 Private MD: Diagnosis: Minimally displaced, oblique distal femur fracture, left;Avulsion fracture (chip fracture) of talus Presentation: 10/12 17:45 Chief complaint: Patient states: " I got up from my chair and I fell. I did not hit my em6 head I did not lose conscious. IM not on any blood thinners. no headache no nausea or vomiting. my left knee just hurts so much. Coronavirus screen: Client denies travel out of the [place] in the last 14 days. Ebola Screen: Patient negative for fever greater than or equal to 101.5 degrees Fahrenheit, and additional compatible Ebola Virus Disease symptoms. Initial Sepsis Screen: Does the patient meet any 2 criteria? No. Patient's initial sepsis screen is negative. Does the patient have a suspected source of infection? No. Patient's initial sepsis screen is negative. Risk Assessment: Do you want to hurt yourself or someone else? Patient reports no desire to harm self or others. Onset of symptoms was October 12, 2022. 17:45 Acuity: FLIP 3 em6 17:45 Method Of Arrival: EMS em6 Historical: - Allergies: 17:47 mycins; em6 - PMHx: 17:47 Diabetes - NIDDM; Glaucoma; Hyperlipidemia; Hypertension; em6 - PSHx: 17:47 Left breast removal; hysterectomy; em6 - Immunization history:: Adult Immunizations up to date. - Social history:: Smoking status: Patient denies any tobacco usage or history of. Screenin:45 Abuse screen: Denies threats or abuse. Nutritional screening: No deficits noted. em6 Tuberculosis screening: No symptoms or risk factors identified. Fall Risk Fall in past 12 months (25 points). No secondary diagnosis (0 pts). IV access (20 points). Ambulatory Aid- None/Bed Rest/Nurse Assist (0 pts). Gait- Impaired (20 pts.). Mental Status- Oriented to own ability (0 pts). Total [place] Fall Scale indicates High Risk Score (45 or more points). Fall prevention measures have been instituted. Side Rails Up X 2 Placed Close to Nursing Station Frequent Obs/Assessments Occuring As available patient and family educated on Fall Prevention Program and Strategies. Assessment: 17:43 General: Appears uncomfortable, Behavior is cooperative. Pain: Complains of pain in em6 right ankle and left knee and left leg Pain does not radiate. Pain currently is 10 out of 10 on a pain scale. Quality of pain is described as sharp, Pain began 1 hour ago. Neuro: Level of Consciousness is awake, alert, obeys commands, Oriented to person, place, time, situation. Cardiovascular: Patient's skin is warm and dry. Respiratory: Airway is patent Respiratory effort is even, unlabored, Respiratory pattern is regular, symmetrical. GI: Abdomen is non-distended, Bowel sounds present X 4 quads. Abd is soft and non tender X 4 quads. : No signs and/or symptoms were reported regarding the genitourinary system. EENT: No signs and/or symptoms were reported regarding the EENT system. Derm: No signs and/or symptoms reported regarding the dermatologic system. Musculoskeletal: Range of motion: limited in left knee and right ankle. 18:40 Reassessment: Patient appears in no apparent distress at this time. No changes from em6 previously documented assessment. Patient and/or family updated on plan of care and expected duration. Pain level reassessed. Patient is alert, oriented x 3, equal unlabored respirations, skin warm/dry/pink. 19:10 Reassessment: provider notified of pain. new order. Pain: Complains of pain in left em6 knee and left leg Pain does not radiate. Pain currently is 9 out of 10 on a pain scale. Quality of pain is described as sharp. Neuro: Level of Consciousness is awake, alert, obeys commands, Oriented to person, place, time, situation. 21:00 General: Appears in no apparent distress. uncomfortable, well groomed, well developed, pf1 Behavior is calm, cooperative, appropriate for age. 21:00 Pain: Complains of pain in left knee and left leg and right foot Pain currently is 8 pf1 out of 10 on a pain scale. Pain began suddenly, Patient stated fell at 1550 today. Neuro: No deficits noted. Level of Consciousness is awake, alert, obeys commands, Oriented to person, place, time, situation. Cardiovascular: No deficits noted. Capillary refill < 3 seconds Patient's skin is warm and dry. Respiratory: No deficits noted. Airway is patent Respiratory effort is even, unlabored, Respiratory pattern is regular, symmetrical, Breath sounds are clear bilaterally. GI: No deficits noted. Abdomen is round non-distended, Bowel sounds present X 4 quads. Abd is soft and non tender X 4 quads. : No deficits noted. No signs and/or symptoms were reported regarding the genitourinary system. EENT: No deficits noted. No signs and/or symptoms were reported regarding the EENT system. Derm: Wound noted Patient has bruising noted to left knee with swelling and right foot with swelling. Musculoskeletal: Capillary refill < 3 seconds, Range of motion: limited in left knee and left leg and right foot and ankle. Vital Signs: 17:44 BP 160 / 77; Pulse 93; Resp 20; Temp 97.7; Pulse Ox 94% on R/A; Weight 66.68 kg; Height em6 5 ft. 3 in. (160.02 cm); Pain 10/10; 19:29 BP 144 / 71; Pulse 100; Resp 20; Pulse Ox 94% on R/A; em6 21:08 BP 157 / 74; Pulse 94; Resp 18; Temp 98.1; Pulse Ox 95% ; Pain 8/10; pf1 22:00 BP 157 / 88; Pulse 83; Resp 18; Temp 98; Pulse Ox 97% on 2 lpm NC; Pain 8/10; pf1 17:44 Body Mass Index 26.04 (66.68 kg, 160.02 cm) em6 ED Course: 17:10 Patient arrived in ED. iw 17:18 Daniel Driscoll DO is Attending Physician. ms3 17:43 Daiana Leos, RN is Primary Nurse. em6 17:43 Maintain EMS IV. Dressing intact. Good blood return noted. Site clean \\T\\ dry. Gauge \\T\\ em 6 site: LAC 20G . 17:47 Triage completed. em6 17:47 Arm band placed on. em6 17:49 Bed in low position. Call light in reach. Side rails up X2. security monitor on. Pulse em6 ox on. NIBP on. Warm blanket given. 18:29 Knee Left 3 View XRAY In Process Unspecified. EDMS 18:29 Ankle Right 3 View XRAY In Process Unspecified. EDMS 19:12 Attending Physician role handed off by Daniel Driscoll DO ms3 19:12 Sterling Mejía MD is Attending Physician. ms3 20:01 Knee Left Wo Con In Process Unspecified. EDMS 20:28 Assisted with bedpan. bb 20:49 initiated a transfer with Ange from [facility]. mw2 21:02 administrative approval given by Ange Pena/ patient has been accepted to [address] to the ER/ Dr. Austin accepted the patient in transfer/report to be called to [phone]. 21:06 SARS RAPID Sent. mw2 22:30 Patient transferred, IV remains in place. pf1 22:30 No provider procedures requiring assistance completed. pf1 Administered Medications: 17:43 Drug: HYDROcodone-acetaminophen 5 mg-325 mg 1 tabs Route: PO; em6 18:20 Follow up: Response: No adverse reaction; RASS: Alert and Calm (0) em6 19:29 Drug: HYDROcodone-acetaminophen 5 mg-325 mg 1 tabs Route: PO; em6 21:24 Drug: morphine 4 mg Route: IVP; Infused Over: 4 mins; Site: left antecubital; pf1 22:20 Follow up: Response: Pain is unchanged, physician notified; RASS: Alert and Calm (0) pf1 21:24 Drug: Zofran (Ondansetron) 4 mg Route: IVP; Site: left antecubital; pf1 22:24 Follow up: Response: Pain is unchanged, physician notified; RASS: Alert and Calm (0) pf1 22:08 Drug: morphine 4 mg Route: IVP; Infused Over: 4 mins; Site: left antecubital; pf1 22:26 Follow up: Response: Pain is unchanged, physician notified; RASS: Alert and Calm (0) pf1 Medication: 22:30 VIS not applicable for this client. pf1 Outcome: 20:41 ER care complete, transfer ordered by . rn 22:29 Transferred by [facility] to [facility], Note: ER pf1 22:29 Condition: stable 22:29 Instructed on the need for transfer, Patient report given to EMS Jeni BAZZI. Patient being transferred at this time at 2220 22:30 Patient left the ED. pf1 Signatures: Dispatcher [employer] EDMS Katalina Plasencia RN RN bb Williams, Irene, RN RN iw Nieto, Roman, MD MD rn Westbrook, MyKena mw2 Daniel Driscoll, DO ms3 Daiana Leos RN RN em6 Ami souza RN RN pf1 Corrections: (The following items were deleted from the chart) : 17:43 Pain: Complains of pain in left leg Pain does not radiate. Pain currently is 10 em6 out of 10 on a pain scale. Quality of pain is described as sharp, Pain began 1 hour ago. em6 19: 17:43 Musculoskeletal: Range of motion: limited in left knee em6 em6 : 17:43 Injury Description: em6 em6
--- NOTE | 2022-10-12 20:42 | EDPHYS ---
Physician Documentation [facility] Name: Lizzeth Kumari Age: 82 yrs Sex: Female : 1940 Arrival Date: 10/12/2022 Time: 17:10 Bed 14 Private MD: ED Physician Sterling Mejía HPI: 10/12 17:19 This 82 yrs old Female presents to ER via Unassigned with complaints of fall. ms3 17:19 Details of fall: The patient fell from an upright position, while standing. Onset: The ms3 symptoms/episode began/occurred just prior to arrival. Associated injuries: The patient sustained left knee pain, painful injury, right ankle pain, swelling. Severity of symptoms: At their worst the symptoms were moderate, in the emergency department the symptoms are unchanged. 82-year-old female presents via [facility] after getting out of her recliner and falling forward. Patient states she tripped, did not lose consciousness, did not strike her head. Patient states she is having 4/10 throbbing left knee and right ankle pain.. Historical: - Allergies: 17:47 mycins; em6 - PMHx: 17:47 Diabetes - NIDDM; Glaucoma; Hyperlipidemia; Hypertension; em6 - PSHx: 17:47 Left breast removal; hysterectomy; em6 - Immunization history:: Adult Immunizations up to date. - Social history:: Smoking status: Patient denies any tobacco usage or history of. ROS: 17:19 Constitutional: Negative for fever, and chills. Neck: Negative for injury, pain, and ms3 swelling, Cardiovascular: Negative for chest pain, and palpitations. Respiratory: Negative for shortness of breath, cough, wheezing, and pleuritic chest pain, Abdomen/GI: Negative for abdominal pain, nausea, vomiting, diarrhea, and constipation. 17:19 MS/extremity: Positive for pain, of the left knee, right ankle. 17:19 All other systems are negative. Exam: 17:19 Constitutional: This is a well developed, well nourished patient who is awake, alert, ms3 and in no acute distress. Head/Face: Normocephalic, atraumatic. Neck: Trachea midline, no cervical lymphadenopathy. Supple, full range of motion without nuchal rigidity, or vertebral point tenderness. No Meningismus. Chest/axilla: Normal chest wall appearance and motion. Nontender with no deformity. Cardiovascular: Regular rate and rhythm with a normal S1 and S2. No gallops, murmurs, or rubs. Normal PMI, no JVD. No pulse deficits. Respiratory: Lungs have equal breath sounds bilaterally, clear to auscultation and percussion. No rales, rhonchi or wheezes noted. No increased work of breathing, no retractions or nasal flaring. Abdomen/GI: Soft, non-tender, with normal bowel sounds. No distension or tympany. No guarding or rebound. No evidence of tenderness throughout. Skin: Warm, dry with normal turgor. Normal color with no rashes, no lesions, and no evidence of cellulitis. 17:19 Musculoskeletal/extremity: Extremities: noted in the left knee pain: pain, tenderness, noted in the right ankle: pain. Vital Signs: 17:44 BP 160 / 77; Pulse 93; Resp 20; Temp 97.7; Pulse Ox 94% on R/A; Weight 66.68 kg; Height em6 5 ft. 3 in. (160.02 cm); Pain 10/10; 19:29 BP 144 / 71; Pulse 100; Resp 20; Pulse Ox 94% on R/A; em6 21:08 BP 157 / 74; Pulse 94; Resp 18; Temp 98.1; Pulse Ox 95% ; Pain 8/10; pf1 22:00 BP 157 / 88; Pulse 83; Resp 18; Temp 98; Pulse Ox 97% on 2 lpm NC; Pain 8/10; pf1 17:44 Body Mass Index 26.04 (66.68 kg, 160.02 cm) em6 MDM: 17:17 Patient medically screened. ms3 19:09 Transition of care: After a detail discussion of the patient's case, care is ms3 transferred to Sterling Mejía MD. 20:34 Differential diagnosis: contusion, fracture. Data reviewed: vital signs, nurses notes, rn radiologic studies, CT scan, plain films, and as a result, I will admit patient. Counseling: I had a detailed discussion with the patient and/or guardian regarding: the historical points, exam findings, and any diagnostic results supporting the discharge/admit diagnosis, radiology results, the need to transfer to another facility, for higher level of care. ED course: UNable to get a hold of Dr. Clayton, will transfer for distal femur fracture that extends to medullary genet. . 20:39 ED course: Consulted with Dr. Strickland, recommends transfer for higher level of care. Will rn initiate transfer. . 10/12 20:34 Order name: SARS RAPID rn 10/12 20:34 Order name: CBC with Diff rn 10/12 17:18 Order name: Knee Left 3 View XRAY; Complete Time: 18:51 ms3 10/12 20:34 Order name: Basic Metabolic Panel rn 10/12 20:34 Order name: Protime (+inr) rn 10/12 20:34 Order name: Ptt, Activated rn 10/12 17:18 Order name: Ankle Right 3 View XRAY; Complete Time: 18:51 ms3 10/12 19:09 Order name: Walking boot; Complete Time: 19:13 ms3 10/12 19:15 Order name: Knee Left Wo Con; Complete Time: 20:16 EDMS 10/12 20:34 Order name: IV Start; Complete Time: 21:24 rn Administered Medications: 17:43 Drug: HYDROcodone-acetaminophen 5 mg-325 mg 1 tabs Route: PO; em6 18:20 Follow up: Response: No adverse reaction; RASS: Alert and Calm (0) em6 19:29 Drug: HYDROcodone-acetaminophen 5 mg-325 mg 1 tabs Route: PO; em6 21:24 Drug: morphine 4 mg Route: IVP; Infused Over: 4 mins; Site: left antecubital; pf1 22:20 Follow up: Response: Pain is unchanged, physician notified; RASS: Alert and Calm (0) pf1 21:24 Drug: Zofran (Ondansetron) 4 mg Route: IVP; Site: left antecubital; pf1 22:24 Follow up: Response: Pain is unchanged, physician notified; RASS: Alert and Calm (0) pf1 22:08 Drug: morphine 4 mg Route: IVP; Infused Over: 4 mins; Site: left antecubital; pf1 22:26 Follow up: Response: Pain is unchanged, physician notified; RASS: Alert and Calm (0) pf1 Disposition Summary: 10/12/22 20:41 Transfer Ordered Transfer Location: [facility] rn Reason: Higher level of care rn Condition: Stable rn Problem: new rn Symptoms: have improved rn Accepting Physician: (10/12/22 22:30) pf1 Diagnosis - Minimally displaced, oblique distal femur fracture, left rn - Avulsion fracture (chip fracture) of talus [employer] Instructions: - Discharge Summary Sheet ms3 - Ankle Fracture ms3 - Musculoskeletal Pain ms3 - Acute Knee Pain, Adult ms3 Forms: - Medication Reconciliation Form rn - SBAR form rn Signatures: Dispatcher [employer] EDMS Sterling Mejía MD MD rn Sims, Marcus, DO DO ms3 Daiana Leos RN RN em6 Ami souza RN RN pf1 Corrections: (The following items were deleted from the chart) 20:41 20:41 Dr. miramontes rn 22:30 20:41 Dr. miramontes pf1
[2022-10-12] MEDS ORDERED: ONDANSETRON 4 MG/2 ML VIAL ONE (21:10)
[2022-10-12] MEDS ORDERED: MORPHINE 4 MG/ML SYR ONE ×2 (21:10→22:08)
[2022-10-12 21:29] LABS: SARS-CoV-2 Antigen Rapid Res Negative (Negative)
[2022-10-12 21:32] LABS: Absolute Lymphocytes (CBC) 0.9 K/uL (0.7-4.9); Hematocrit 35.5 % (36.0-45.0); Lymphocytes % 6.6 % (15.3-44.8); MCV 86.4 fL (80-100); MPV 8.2 fL (7.6-11.3); RBC Red Blood Cell Count 4.11 M/uL (3.86-4.86)
[2022-10-12 21:38] LABS: Protime INR 0.98
[2022-10-12 21:45] LABS: Potassium 3.3 mmol/L (3.5-5.1)
[2022-10-12 23:11] VITALS: BP 157/88; TEMP 98; O2SAT 97
== END 2022-10-12 22:30 | disposition short-term general hospital (02) ==
LOC: ER 16:59
DX: S72.402A Unspecified fracture of lower end of left femur, initial encounter for closed fracture (principal); S92.151A Displaced avulsion fracture (chip fracture) of right talus, initial encounter for closed fracture; Z20.822 Contact with and (suspected) exposure to COVID-19; Z88.3 Allergy status to other anti-infective agents
CPT/HCPCS: 85025; 80048; 36415; 85610; 85730; 73700; 73562; 73610; 87811; J2405; 96374; 96375; 99285

== ENCOUNTER 2024-06-10 11:54 | Emergency (ER) | payer OTHER ==
[2024-06-10 13:18] LABS: Absolute Basophils 0.1 K/uL (0-0.5); Absolute Eosinophils 0.2 K/uL (0-0.5); Absolute Monocytes 0.9 K/uL (0.1-1.3); Absolute Neutrophil 9.5 K/uL (1.8-8.0); Basophils % 0.5 % (0-1.3); Eosinophils % 1.6 % (0-4.4); Hematocrit 41.7 % (36.0-45.0); Hemoglobin 13.7 g/dL (12.0-15.0); Lymphocytes % 8.2 % (15.3-44.8); MCH 28.5 pg (27.0-35.0); MCHC 32.8 g/dL (32.0-36.0); MCV 87.1 fL (80-100); MPV 7.3 fL (7.6-11.3); Monocytes % 7.4 % (3.3-12.3); Neutrophils % 82.3 % (41.7-73.7); Platelets 383 thou/uL (152-406); RBC Red Blood Cell Count 4.78 M/uL (3.86-4.86); Red Cell Distribution Width 13.3 % (12.1-15.2)
[2024-06-10 13:44] LABS: Albumin 3.5 g/dL (3.4-5.0); Albumin/Globulin Ratio 0.9 (1.1-1.8); Anion Gap 5.5 mEq/L (5.0-15.0); Bilirubin Total 0.5 mg/dL (0.2-1.0); Globulin 3.9 g/dL (2.3-3.5); Potassium 3.5 mEq/L (3.5-5.1); Protein, Total 7.4 g/dL (6.4-8.2)
[2024-06-10 13:45] LABS: Specific Gravity 1.013 (1.005-1.030); Sqamous Epithelial None Seen /HPF (None Seen); Urine Bacteria <20 /HPF (<20); Urine Bilirubin NEGATIVE (Negative); Urine Blood Negative (Negative); Urine Clarity Extremely Turbid (Clear); Urine Color Light-Yellow (Yellow); Urine Culture Reflex Order NOT NEEDED; Urine Glucose NEGATIVE (Negative); Urine Ketones NEGATIVE (Negative); Urine Microscopic Reflex YN ORDER UMIC; Urine Mucus Slight /HPF (None Seen); Urine Nitrite NEGATIVE (Negative); Urine Protein NEGATIVE (Negative); Urine RBC <5 /HPF (None Seen); Urine Urobilinogen Normal (Normal); Urine WBC <5 /HPF (<5)
[2024-06-10] MEDS ORDERED: NA CHLORIDE 0.9% 0 ML ONE (13:58)
[2024-06-10] MEDS ORDERED: ONDANSETRON 4 MG/2 ML VIAL ONE (13:58)
[2024-06-10] MEDS ORDERED: MORPHINE 4 MG/ML SYR ONE (13:58)
--- NOTE | 2024-06-10 14:28 | RAD REPORT ---
EXAM DESCRIPTION: CT - Abdomen Pelvis W Contrast - 06/10/2024 2:12 pm CLINICAL HISTORY: Abdominal pain COMPARISON: none. TECHNIQUE: Computed axial tomography of the abdomen pelvis was obtained. 100 cc Isovue-300 was admin istered intravenously. Oral contrast was not requested which limits evaluation of bowel and appendix All CT scans are performed using dose optimization technique as appropriate and may include automated exposure control or mA/KV adjustment according to patient size. FINDINGS: The liver, spleen, pancreas, adrenals are unremarkable. Small nonobstructing left renal calculi. 4.2 centimeter right renal cyst. Additional smaller cysts. Small hiatal hernia. 2.5 centimeter duodenal diverticulum. Diverticula stem the colon. Mild stranding adjacent to the sigmoid colon. No free air. No abscess Hysterectomy. No adnexal mass Scoliosis Thickened wall distal stomach 10 millimeter lobulated opacity right middle lobe. IMPRESSION: Mild sigmoid diverticulitis Thickened wall distal stomach could be secondary to incomplete distention or pathology such as inflam mation 10 millimeter lobulated opacity right middle lobe may be inflammatory or neoplastic. Follow-up [facility] in 3 months recommended for re-evaluation
[2024-06-10] MEDS ORDERED: CEFTRIAXONE 1000 MG/VIAL ONE (15:22)
[2024-06-10] MEDS ORDERED: FENTANYL CITR 100 MCG/2 ML ONE (15:22)
[2024-06-10] MEDS ORDERED: METRONIDAZOLE 500mg IVPB 500 MG/100 ML BAG IV ONE (15:24)
--- NOTE | 2024-06-10 15:38 | EDPHYS ---
Physician Documentation [facility] Name: Lizzeth Kumari Age: 83 yrs Sex: Female : 1940 Arrival Date: 06/10/2024 Time: 11:54 Bed 6 Private MD: ED Physician Aiden Prado HPI: 06/10 13:05 This 83 yrs old Female presents to ER via Wheelchair with complaints of Abdominal Pain. sb4 13:05 The patient presents with abdominal pain in the lower abdomen. Onset: The sb4 symptoms/episode began/occurred yesterday. The symptoms do not radiate. Associated signs and symptoms: none. The symptoms are described as sharp, shooting. Modifying factors: The symptoms are alleviated by nothing, the symptoms are aggravated by nothing. The patient has not experienced similar symptoms in the past. The patient has not recently seen a physician. Historical: - Allergies: 12:54 mycins; cm10 - PMHx: 12:54 Diabetes - NIDDM; Glaucoma; Hyperlipidemia; Hypertension; cm10 - PSHx: 12:54 hysterectomy; Left breast removal; cm10 - Immunization history:: Adult Immunizations up to date. - Infectious Disease History:: Denies. - Social history:: Smoking status: Patient denies any tobacco usage or history of. ROS: 13:05 Constitutional: Negative for fever, chills, and weight loss, sb4 13:05 Abdomen/GI: Positive for abdominal pain, 13:05 All other systems are negative, Exam: 13:05 Constitutional: This is a well developed, well nourished patient who is awake, alert, sb4 and in no acute distress. Head/Face: Normocephalic, atraumatic. Eyes: Extra-ocular motions intact. Periorbital areas with no swelling, redness, or edema. ENT: Mucous membranes moist. Cardiovascular: Regular rate and rhythm with a normal S1 and S2. Respiratory: Lungs have equal breath sounds bilaterally, clear to auscultation and percussion. No rales, rhonchi or wheezes noted. No increased work of breathing, no retractions or nasal flaring. Back: No spinal tenderness. No costovertebral tenderness. Full range of motion. Skin: Warm, dry with normal turgor. Normal color with no rashes, no lesions, and no evidence of cellulitis. MS/ Extremity: Pulses equal, no cyanosis. Neurovascular intact. Full, normal range of motion. 13:05 Abdomen/GI: Inspection: abdomen appears normal, Bowel sounds: normal, Palpation: soft, mild abdominal tenderness, in the suprapubic area, Vital Signs: 12:53 BP 157 / 73; Pulse 69; Resp 16; Temp 97.4; Pulse Ox 97% on R/A; Weight 70.31 kg; Height cm10 5 ft. 4 in. ; Pain 10/10; 13:35 BP 173 / 99; Pulse 59; Resp 16; Pulse Ox 97% ; dd2 14:22 BP 164 / 83; Pulse 57; Resp 15; Pulse Ox 98% ; dd2 15:09 BP 166 / 82; Pulse 53; Resp 17; Pulse Ox 98% ; dd2 16:15 BP 158 / 90; Pulse 70; Resp 16; Pulse Ox 99% ; dd2 12:53 Body Mass Index 26.61 (70.31 kg, 162.56 cm) cm10 12:53 Pain Scale: Adult cm10 MDM: 12:39 Patient medically screened. sb4 15:36 Data reviewed: vital signs, nurses notes, lab test result(s), radiologic studies, and sb4 as a result, I will discharge patient. Care significantly affected by the following chronic conditions: Diabetes, Hypertension. Counseling: I had a detailed discussion with the patient and/or guardian regarding the historical points, exam findings, and any diagnostic results supporting the discharge/admit diagnosis, lab results, radiology results, to return to the emergency department if symptoms worsen or persist or if there are any questions or concerns that arise at home. 06/10 12:53 Order name: CBC with Diff; Complete Time: 13:35 sb4 06/10 12:53 Order name: CMP; Complete Time: 17:19 sb4 06/10 12:53 Order name: Lipase; Complete Time: 17:19 sb4 06/10 12:53 Order name: Urinalysis w/ reflexes; Complete Time: 13:49 sb4 06/10 12:53 Order name: CT Abd/Pelvis - IV Contrast Only; Complete Time: 14:31 sb4 06/10 12:53 Order name: IV Saline Lock; Complete Time: 13:12 sb4 06/10 12:53 Order name: Labs collected and sent; Complete Time: 13:12 sb4 Administered Medications: 14:21 Drug: NS 0.9% IV 1000 ml IV at 1 bolus Per protocol; 1000 mL bolus Route: IV; Rate: 1 dd2 bolus; Site: left antecubital; 14:36 Follow up: Response: No adverse reaction dd2 15:30 Follow up: Response: No adverse reaction; IV Status: Completed infusion; IV Intake: dd2 1000ml 14:21 Drug: Ondansetron IVP 4 mg IVP once; over 2 minutes Route: IVP; Site: left antecubital; dd2 14:36 Follow up: Response: No adverse reaction dd2 14:21 Drug: morphine IVP or IV 4 mg IVP once over 4 mins Route: IVP; Infused Over: 4 mins; dd2 Site: left antecubital; 14:36 Follow up: Response: No adverse reaction dd2 16:04 Drug: Rocephin IV 1 grams IV at calculated rate once; Given slow IV push per pharmacy dd2 instructions Route: IV; Rate: calculated rate; Site: left antecubital; 16:19 Follow up: Response: No adverse reaction dd2 16:19 Follow up: Response: No adverse reaction; IV Status: Completed infusion; IV Intake: [id number] 16:04 Drug: metroNIDAZOLE IVPB 500 mg 100 ml IVPB at 200 ml/hr once over 30 mins Volume: 100 dd2 ml; Route: IVPB; Rate: 200 ml/hr; Infused Over: 30 mins; Site: left antecubital; 16:19 Follow up: Response: No adverse reaction dd2 16:34 Follow up: Response: No adverse reaction; IV Status: Completed infusion; IV Intake: dd2 100ml 16:04 Drug: fentaNYL (PF) IVP 50 mcg IVP once Route: IVP; Site: left antecubital; dd2 16:19 Follow up: Response: No adverse reaction dd2 Disposition Summary: 06/10/24 15:37 Discharge Ordered Notes: Location: Home sb4 Problem: new sb4 Symptoms: have improved sb4 Condition: Stable sb4 Diagnosis - Diverticulitis of large intestine without perforation or abscess without bleeding sb4 Followup: sb4 - With: Emergency Department - When: As needed - Reason: Fever > 102 F, Worsening of condition Discharge Instructions: - Discharge Summary Sheet sb4 - Diverticulitis, [id number] sb4 Forms: - Antibiotic Education sb4 - Prescription Opioid Use sb4 - Patient Portal Instructions sb4 - Leadership Thank You Letter sb4 Prescriptions: - Flagyl 500 mg Oral Tablet - take 1 tablet ORAL route every 8 hours for 10 days; 30 tablet; Refills: 0, sb4 Product Selection Permitted - Cipro 500 mg Oral Tablet - take 1 tablet ORAL route every 12 hours for 7 days; 14 tablet; Refills: 0, sb4 Product Selection Permitted - Tramadol 50 mg Oral Tablet - take 1 tablet ORAL route every 8 hours as needed; 12 tablet; Refills: 0, sb4 Product Selection Permitted Signatures: Dispatcher [employer] EDMS Latesha Caruso PA-C PA-C sb4 Radha Leos, RN RN cm10 ALEA CAMERON RN RN dd2 Corrections: (The following items were deleted from the chart) 12:54 12:54 CBC+H.LAB.BRZ ordered. EDMS EDMS 12:54 12:54 COMPREHENSIVE METABOLIC PANEL+C.LAB.BRZ ordered. EDMS EDMS 12:54 12:54 LIPASE+C.LAB.BRZ ordered. EDMS EDMS 12:54 12:54 Urinalysis+U.LAB.BRZ ordered. EDMS EDMS 12:54 12:54 Abdomen Pelvis W Con+CT.RAD.BRZ ordered. EDMS EDMS
--- NOTE | 2024-06-10 15:38 | ER ---
Nurse's Notes [facility] Name: Lizzeth Kumari Age: 83 yrs Sex: Female : 1940 Arrival Date: 06/10/2024 Time: 11:54 Bed 6 Private MD: Diagnosis: Diverticulitis of large intestine without perforation or abscess without bleeding Presentation: 06/10 12:53 Chief complaint: Patient states: Lower abdominal pain onset yesterday. Pt describes the cm10 pain as sharp. Pt has noted tenderness to her lower abdomen, no nausea, vomiting or diarrhea. No urinary symptoms. Coronavirus screen: Client denies travel out of the [place] in the last 14 days. At this time, the client does not indicate any symptoms associated with coronavirus-19. Ebola Screen: Patient denies travel to an Ebola-affected area in the 21 days before illness onset. No symptoms or risks identified at this time. Initial Sepsis Screen: Does the patient meet any 2 criteria? No. Patient's initial sepsis screen is negative. Does the patient have a suspected source of infection? No. Patient's initial sepsis screen is negative. Risk Assessment: Do you want to hurt yourself or someone else? Patient reports no desire to harm self or others. Onset of symptoms was June 10, 2024. 12:53 Method Of Arrival: Wheelchair cm10 12:53 Acuity: FLIP 3 cm10 Triage Assessment: 12:54 General: Appears in no apparent distress. uncomfortable, Behavior is calm, cooperative. cm10 Neuro: No deficits noted. Level of Consciousness is awake, alert, obeys commands, Oriented to person, place, time, situation, Appropriate for age. Respiratory: No deficits noted. Airway is patent Respiratory effort is even, unlabored, Respiratory pattern is regular, symmetrical. 13:49 Pain: Complains of pain in left lower quadrant. GI: Abdomen is tender to palpation in dd2 left lower quadrant Reports lower abdominal pain, since 06/09/2024. Historical: - Allergies: 12:54 mycins; cm10 - PMHx: 12:54 Diabetes - NIDDM; Glaucoma; Hyperlipidemia; Hypertension; cm10 - PSHx: 12:54 hysterectomy; Left breast removal; cm10 - Immunization history:: Adult Immunizations up to date. - Infectious Disease History:: Denies. - Social history:: Smoking status: Patient denies any tobacco usage or history of. Screenin:[address] [facility] ED Fall Risk Assessment (Adult) History of falling in the last 3 months, dd2 including since admission No falls in past 3 months (0 pts) Confusion or Disorientation No (0 pts) Intoxicated or Sedated No (0 pts) Impaired Gait No (0 pts) Mobility Assist Device Used Yes (1 pt) Altered Elimination No (0 pt) Score/Fall Risk Level 0 - 2 = Low Risk Oriented to surroundings, Maintained a safe environment, Assessed \T\ reinforced patient's understanding of fall precautions, Hourly rounding (assess needs \T\ fall precautionary measures) done, Used ambulatory aids as needed (educated on \T\ assisted with). Abuse screen: Denies threats or abuse. Nutritional screening: No deficits noted. Tuberculosis screening: No symptoms or risk factors identified. Assessment: 13:35 General: Appears in no apparent distress. Behavior is calm, cooperative. Pain: dd2 Complains of pain in left lower quadrant. Neuro: No deficits noted. Cardiovascular: No deficits noted. Respiratory: No deficits noted. GI: Bowel sounds present X 4 quads. Abdomen is tender to palpation in left lower quadrant. : No deficits noted. EENT: No deficits noted. Derm: No deficits noted. Musculoskeletal: No deficits noted. Vital Signs: 12:53 BP 157 / 73; Pulse 69; Resp 16; Temp 97.4; Pulse Ox 97% on R/A; Weight 70.31 kg; Height cm10 5 ft. 4 in. ; Pain 10/10; 13:35 BP 173 / 99; Pulse 59; Resp 16; Pulse Ox 97% ; dd2 14:22 BP 164 / 83; Pulse 57; Resp 15; Pulse Ox 98% ; dd2 15:09 BP 166 / 82; Pulse 53; Resp 17; Pulse Ox 98% ; dd2 16:15 BP 158 / 90; Pulse 70; Resp 16; Pulse Ox 99% ; dd2 12:53 Body Mass Index 26.61 (70.31 kg, 162.56 cm) cm10 12:53 Pain Scale: Adult cm10 ED Course: 11:56 Patient arrived in ED. mr 12:12 Latesha Caruso PA-C is PHCP. sb4 12:12 Aiden Prado MD is Attending Physician. sb4 12:54 Triage completed. cm10 12:55 Arm band placed on Patient placed in an exam room, on a stretcher. cm10 13:12 CBC with Diff Sent. bc6 13:12 CMP Sent. bc6 13:12 Lipase Sent. bc6 13:12 Initial lab(s) drawn, by ED staff, sent to lab. Inserted saline lock: 20 gauge in left bc6 antecubital area, using aseptic technique. Blood collected. Flushed with 10 mL NS. 13:35 Patient has correct armband on for positive identification. Bed in low position. Call dd2 light in reach. Side rails up X 1. Provided Education on: CALL LIGHT, MEDICATION, PROVEDURES. Door closed. Warm blanket given. 13:35 No provider procedures requiring assistance completed. dd2 13:42 ALEA CAMERON, RN is Primary Nurse. dd2 14:14 CT Abd/Pelvis - IV Contrast Only In Process Unspecified. EDMS 17:17 IV discontinued, intact, bleeding controlled, No redness/swelling at site. Pressure dd2 dressing applied. Administered Medications: 14:21 Drug: NS 0.9% IV 1000 ml IV at 1 bolus Per protocol; 1000 mL bolus Route: IV; Rate: 1 dd2 bolus; Site: left antecubital; 14:36 Follow up: Response: No adverse reaction dd2 15:30 Follow up: Response: No adverse reaction; IV Status: Completed infusion; IV Intake: dd2 1000ml 14:21 Drug: Ondansetron IVP 4 mg IVP once; over 2 minutes Route: IVP; Site: left antecubital; dd2 14:36 Follow up: Response: No adverse reaction dd2 14:21 Drug: morphine IVP or IV 4 mg IVP once over 4 mins Route: IVP; Infused Over: 4 mins; dd2 Site: left antecubital; 14:36 Follow up: Response: No adverse reaction dd2 16:04 Drug: Rocephin IV 1 grams IV at calculated rate once; Given slow IV push per pharmacy dd2 instructions Route: IV; Rate: calculated rate; Site: left antecubital; 16:19 Follow up: Response: No adverse reaction dd2 16:19 Follow up: Response: No adverse reaction; IV Status: Completed infusion; IV Intake: [id number] 16:04 Drug: metroNIDAZOLE IVPB 500 mg 100 ml IVPB at 200 ml/hr once over 30 mins Volume: 100 dd2 ml; Route: IVPB; Rate: 200 ml/hr; Infused Over: 30 mins; Site: left antecubital; 16:19 Follow up: Response: No adverse reaction dd2 16:34 Follow up: Response: No adverse reaction; IV Status: Completed infusion; IV Intake: dd2 100ml 16:04 Drug: fentaNYL (PF) IVP 50 mcg IVP once Route: IVP; Site: left antecubital; dd2 16:19 Follow up: Response: No adverse reaction dd2 Medication: 13:35 VIS not applicable for this client. dd2 Intake: 15:30 IV: 1000ml; Total: 1000ml. dd2 16:19 IV: 10ml; Total: 1010ml. dd2 16:34 IV: 100ml; Total: 1110ml. dd2 Outcome: 15:37 Discharge ordered by . sb4 17:17 Discharged to home via wheelchair, dd2 17:17 Condition: stable 17:17 Discharge instructions given to patient, significant other, Instructed on discharge instructions, follow up and referral plans. medication usage, Demonstrated understanding of instructions, follow-up care, medications, Prescriptions given X 3, 17:20 Patient left the ED. dd2 Signatures: Dispatcher [employer] EDMS SpannHiwot mayes, Reg Reg mr Latesha Caruso, PA-C PA-Autumn sb4 Serena John6 Radha Leos RN RN cm10 ALEA CAMERON RN RN dd2 Corrections: (The following items were deleted from the chart) 16:56 16:19 Response: No adverse reaction dd2 dd2
[2024-06-10 17:24] VITALS: TEMP 97.4
[2024-06-10 17:29] VITALS: BP 158/90; O2SAT 99
== END 2024-06-10 17:20 | disposition home or self-care (01) ==
LOC: ER 11:54
DX: K57.32 Diverticulitis of large intestine without perforation or abscess without bleeding (principal)
CPT/HCPCS: 96365; 96361; 85025; 81001; 36415; 83690; 80053; 74177; 96375; 99284; Q9967; J3010; J2405; J0696; J7030

== ENCOUNTER 2024-08-23 07:07 | Day surgery (SDC) | payer OTHER ==
[2024-08-23] MEDS: DIAZEPAM 5 MG TABLET ONE (08:23)
[2024-08-23 08:35] LABS: Absolute Eosinophils 0.2 K/uL (0-0.5); Absolute Monocytes 0.5 K/uL (0.1-1.3); Absolute Neutrophil 4.8 K/uL (1.8-8.0); Basophils % 0.7 % (0-1.3); Hematocrit 39.8 % (36.0-45.0); Hemoglobin 13.4 g/dL (12.0-15.0); Lymphocytes % 15.6 % (15.3-44.8); MCH 29.3 pg (27.0-35.0); MCHC 33.7 g/dL (32.0-36.0); MCV 86.9 fL (80-100); MPV 7.3 fL (7.6-11.3); Monocytes % 8.2 % (3.3-12.3); Neutrophils % 72.5 % (41.7-73.7); Platelets 307 thou/uL (152-406); RBC Red Blood Cell Count 4.58 M/uL (3.86-4.86)
[2024-08-23 08:42] LABS: PTT, Activated Partial Thromb 31.2 SECONDS (24.3-36.9); Protime INR 0.98
[2024-08-23 08:54] LABS: Albumin 3.4 g/dL (3.4-5.0); Anion Gap 8.4 mEq/L (5.0-15.0); Bilirubin Direct 0.2 mg/dL (0-0.2); Bilirubin Indirect, Calculated 0.5 mg/dL (0.2-0.8); Bilirubin Total 0.7 mg/dL (0.2-1.0); Globulin 3.3 g/dL (2.3-3.5); Potassium 3.4 mEq/L (3.5-5.1); Protein, Total 6.7 g/dL (6.4-8.2)
[2024-08-23 10:17] VITALS: BMI 30.2
[2024-08-23] MEDS: HYDROCODONE/APAP 7.5/325 MG TAB ONE (12:09)
--- NOTE | 2024-08-23 12:35 | RAD REPORT ---
XR SPINE LUMBAR PUNCTURE CLINICAL INDICATION: F03.90, R74.98, I10, E03.9, C80.1. TECHNIQUE: The risks (including the risks of bleeding, infection, headache, and need for an epidural blood patch), benefits, and alternatives of the procedure were carefully explained to the patient who wished to proceed. Informed written consent was obtained and a timeout procedure was performed pr ior to beginning the study. The patient was positioned on the fluoroscopy table in an oblique prone position. The skin over the l er back was prepped and draped in the usual, sterile fashion. Local anesthesia was used for the subcutaneous soft tissues. A lumbar puncture was performed directing a 22-gauge 3.5 inch spinal needl e into the spinal canal under direct fluoroscopic guidance targeting the left L3-4 level, until the return of clear CSF was observed. FINDINGS: CSF appearance: Clear and free-flowing Total CSF volume removed: 12 cc. Samples were sent to the lab per the ordering physician's orders. Following completion of the procedure the needle was withdrawn and a band-aid placed over the punctur e site. Postprocedural instructions were given to the patient. Complications: None IMPRESSION: Successful fluoroscopically-guided LP, as above. Total fluoroscopy time was 0.4 minutes. Skin dose: 46.08 mGy
[2024-08-23 13:20] LABS: CSF Glucose 61 mg/dL (40-70)
[2024-08-23 13:28] LABS: Appearance CLEAR (CLEAR); Body Fluid Source CSF; Body Fluid WBC 1 /mm^3; Color of Supernate Not Xanthochromic (Not Xantho); Color of fluid Colorless (COLORLESS); Tube # #3
[2024-08-23 14:09] VITALS: BP 137/62; TEMP 97.7; O2SAT 95
== END 2024-08-23 14:04 | disposition home or self-care (01) ==
LOC: RAD 07:07 → DS 14:04
PROVIDERS: ATTEND Psychiatry & Neurology Neurology with Special Qualifications in Child Neurology
PROC: 009U3ZX Drainage of Spinal Canal, Percutaneous Approach, Diagnostic (ICD-10-PCS; principal; 2024-08-23)
PROC: B01BZZZ Fluoroscopy of Spinal Cord (ICD-10-PCS; 2024-08-23)
DX: F03.90 Unspecified dementia, unspecified severity, without behavioral disturbance, psychotic disturbance, mood disturbance, and anxiety (principal); R74.8 Abnormal levels of other serum enzymes; I10 Essential (primary) hypertension; E03.9 Hypothyroidism, unspecified; C80.1 Malignant (primary) neoplasm, unspecified
CPT/HCPCS: 36415; 77003; 80048; 80076; 82542; 82945; 84157; 85025; 85610; 85730; 89050